=== PATIENT | female | born 1965 | race Caucasian/White ===

== ENCOUNTER 2023-10-14 18:58 | Emergency (ER) | payer MEDICARE, MEDICAID, SELFPAY ==
[2023-10-14 19:03] VITALS: BP 120/90; PULSE 66; RESP 16; TEMP 36.3; O2SAT 100
[2023-10-14 21:53] VITALS: BP 127/90; PULSE 96; RESP 18; O2SAT 100
--- NOTE | 2023-10-14 22:25 | ED.GENADULT ---
HPI - General Adult General Chief complaint: Unspecified Stated complaint: stomach virus Time Seen by Provider: 10/14/23 22:13 History of Present Illness HPI narrative: the patient is a 58-year-old female who presents to the emergency department with chief complaint of shortness of breath, stomach bug as above medications. The patient reports that she moved to the area from [facility] approximately 1 month ago has been having where she feels as though it is hard to take a deep breath and reports that she also has had an uncomfortable feeling in her abdomen the patient states today she noticed that there was a lump on the right side of her neck and reports that she has been out of her medications for the last month the patient decided today to come to the emergency department in the evaluated the patient denies fever reports that she has an appointment later this month with a primary care provider Related Data Allergies Allergy/AdvReac Type Severity Reaction Status Date / Time No Known Allergies Allergy Verified 10/14/23 21:53 Review of Systems Review of Systems: A 10 system review of systems was completed on the patient and is negative except for what is stated in the HPI. Nursing and ancillary documentation was reviewed. Exam Narrative: GENERAL: Well-appearing, well-nourished, and in no acute distress. HEAD: Normocephalic, atraumatic. EYES: PERRLA and EOMI. ENT: Nares clear, no rhinorrhea or epistaxis. Mucous membranes moist. NECK: Supple. enlarged right anterior cervical chain lymph node CHEST: Clear to auscultation. No respiratory distress. HEART: Regular rate and rhythm. No murmur heard. Normal peripheral pulses. ABDOMEN: Soft, nontender, nondistended, normal active bowel sounds. EXTREMITIES: Normal range of motion. No edema. SKIN: Warm, dry, no rash. NEURO: No focal deficits. Alert and oriented x3. PSYCH: Normal mood and affect. Course Vital Signs Vital signs: Vital Signs Temperature 36.3 C L 10/14/23 19:03 Pulse Rate 66 10/14/23 19:03 Respiratory Rate 16 10/14/23 19:03 Blood Pressure 120/90 10/14/23 19:03 Pulse Oximetry 100 10/14/23 19:03 Temperature 36.3 C L 10/14/23 19:03 Pulse Rate 96 10/14/23 21:53 Respiratory Rate 18 10/14/23 21:53 Blood Pressure 127/90 10/14/23 21:53 Pulse Oximetry 100 10/14/23 21:53 Medical Decision Making MDM Narrative Medical decision making narrative: differential diagnosis includes viral syndrome, strep pharyngitis, upper respiratory infection, while waiting to have her laboratory studies and tests performed the patient decided she needed to go home and that her ride home was here and she decided to leave at this time Vital Signs Vital Signs: Vital Signs Temperature 36.3 C L 10/14/23 19:03 Pulse Rate 66 10/14/23 19:03 Respiratory Rate 16 10/14/23 19:03 Blood Pressure 120/90 10/14/23 19:03 Pulse Oximetry 100 10/14/23 19:03 Temperature 36.3 C L 10/14/23 19:03 Pulse Rate 96 10/14/23 21:53 Respiratory Rate 18 10/14/23 21:53 Blood Pressure 127/90 10/14/23 21:53 Pulse Oximetry 100 10/14/23 21:53 Discharge Plan Discharge Clinical Impression: Abdominal pain Patient Disposition: Left Against Medical Advice Condition: Stable Follow-up/Referrals: PHYSICIAN NOT ON STAFF,NONSTAFF [Primary Care Provider] - Time of Disposition: 22:34
== END 2023-10-14 22:28 | disposition left against medical advice (07) ==
PROVIDERS: Emergency Provider Emergency Medicine
DX: R10.9 Unspecified abdominal pain (principal)
CPT/HCPCS: 99283